=== PATIENT | female | born 1980 | race Caucasian/White ===

== ENCOUNTER 2019-06-30 10:14 | Emergency (ER) | payer MEDICAID ==
[~2019-06-30] VITALS: Ht 149.9 cm; Wt 81.8 kg
[~2019-06-30 10:14] MED LIST: PREDNISONE20 MG PO
[2019-06-30 10:27] VITALS: TEMP 98.3
[2019-06-30] MEDS ORDERED: ZOFRAN ODT8 MG PO (10:49)
[2019-06-30] MEDS ORDERED: PRIL40 PO (10:51)
[2019-06-30 11:07] LABS: BASO % 0.1 % (0.0-2.0); EOS # 0.1 (0.0-0.7); EOS % 1.5 % (0-4.0); GRAN # 7.1 (1.4-6.5); GRAN % 80.8 % (42.2-75.2); HEMATOCRIT 41.1 % (37.0-47.0); HEMOGLOBIN 13.5 g/dl (12.5-16.0); LYMPH # 1.1 (1.2-3.4); LYMPH % 12.4 % (20.0-51.0); MEAN CELL VOLUME 90 fl (80.0-100.0); MEAN CORPUSCULAR HEMOGLOBIN 30 pg (27.0-31.0); MEAN CORPUSCULAR HGB CONC 33 g/dl (33.0-37.0); MEAN PLATELET VOLUME 10.5 fl (7.4-10.4); MONO # 0.4 (0.1-0.6); MONO % 4.9 % (1.7-9.3); PLATELET COUNT 227 K/mm3 (130-400); RED BLOOD COUNT 4.56 M/mm3 (4.10-5.30); REDCELL DISTRIBUTION WIDTH-CV 12.4 % (11.5-14.5)
[2019-06-30 11:20] LABS: ALANINE AMINOTRANSFERASE 19 U/L (9-52); ALBUMIN 4.3 gm/dL (3.5-5.0); ALKALINE PHOSPHATASE 57 U/L (50-136); ANION GAP 10 mmol/L (7-16); AST,SGOT 19 U/L (15-37); BILIRUBIN,TOTAL 0.9 mg/dL (0.0-1.0); BLOOD UREA NITROGEN 14 mg/dL (7-17); C-REACTIVE PROTEIN 0.6 mg/dL (0.0-0.9); CALCIUM 8.9 mg/dL (8.4-10.2); CARBON DIOXIDE 21 mmol/L (22-30); CHLORIDE 106 mmol/L (98-107); CREATININE, serum 0.56 (0.52-1.25); GLUCOSE 113 mg/dL (74-106); LIPASE 84 U/L (23-300); SODIUM 138 mmol/L (137-145); TOTAL PROTEIN 8.2 gm/dL (6.4-8.2)
[2019-06-30 11:38] LABS: TROPONIN-I < 0.012 ng/mL (0.000-0.035)
[2019-06-30] MEDS ORDERED: CARAFATE 1GM1 G PO (12:08)
[2019-06-30 12:26] VITALS: BP 132/86; PULSE 85
== END 2019-06-30 12:26 | disposition home or self-care (01) ==
LOC: COL.ER 10:14
PROVIDERS: Emergency Medicine
DX: R11.2 Nausea with vomiting, unspecified (principal); R19.7 Diarrhea, unspecified; R10.13 Epigastric pain; Z90.89 Acquired absence of other organs; Z90.710 Acquired absence of both cervix and uterus
CPT/HCPCS: C9113; J2270; J2405; J7030

== ENCOUNTER → 2021-03-29 | Outpatient (CLI) | payer MEDICAID ==
[~2021-03-29] MED LIST changes: +CARAFATE 1GM1 G PO; +PRIL40 PO; +ZOFRAN ODT8 MG PO
== END ==
LOC: MC.RAD 14:13
DX: Z12.31 Encounter for screening mammogram for malignant neoplasm of breast (principal); N63.11 Unspecified lump in the right breast, upper outer quadrant

== ENCOUNTER → 2021-04-08 | Outpatient (CLI) | payer MEDICAID | LOC: MC.RAD 09:55 | DX: R59.0 Localized enlarged lymph nodes (principal) ==

== ENCOUNTER 2021-12-26 15:35 | Emergency (ER) | payer MEDICAID ==
[~2021-12-26] VITALS: Ht 149.9 cm; Wt 92.7 kg
[2021-12-26 16:20] LABS: HEMOGLOBIN 11.7 g/dl (12.5-16.0); MEAN CELL VOLUME 87 fl (80.0-100.0); MEAN CORPUSCULAR HEMOGLOBIN 29 pg (27-31); MEAN CORPUSCULAR HGB CONC 33 g/dl (33.0-37.0); MEAN PLATELET VOLUME 10.1 fl (7.4-10.4); PLATELET COUNT 188 K/mm3 (130-400); REDCELL DISTRIBUTION WIDTH-CV 12.8 % (11.5-14.5)
[2021-12-26 16:21] LABS: COLLECTION METHOD CLEAN CATCH
[2021-12-26 16:23] LABS: HEMATOCRIT 35.6 % (37.0-47.0)
[2021-12-26 16:37] LABS: ALBUMIN 3.5 gm/dL (3.5-5.0); BILIRUBIN,TOTAL 0.7 mg/dL (0.2-1.2); C-REACTIVE PROTEIN 2.8 mg/dL (0.00-0.50); CALCIUM 8.8 mg/dL (8.4-10.2); CREATININE, serum 0.74 mg/dL (0.57-1.11); POTASSIUM 3.7 mmol/L (3.5-4.5); TOTAL PROTEIN 7.8 gm/dL (6.2-8.1)
[2021-12-26 17:08] LABS: BAND 8 % (0-10); NEUTROPHILS 25 % (42.0-75.2); PLATELET ESTIMATE NORMAL (NORMAL)
[2021-12-26 17:09] LABS: LYMPHOCYTE 52 % (20.0-51.0)
[2021-12-26 17:13] LABS: MUCOUS Present (NOT PRESENT); PH 5 (5-8); URINE APPEARANCE Cloudy (CLEAR/HAZY); URINE BILIRUBIN Negative (NEGATIVE); URINE BLOOD Negative (NEGATIVE); URINE COLOR Yellow (YELLOW); URINE GLUCOSE Negative (NEGATIVE); URINE KETONE 2+ (NEGATIVE); URINE LEUKOCYTE ESTERASE 3+ (NEGATIVE); URINE NITRATE Negative (NEGATIVE); URINE PROTEIN(semi-quant) Negative (NEGATIVE); URINE RBC 0-2 /hpf (0-2)
[2021-12-26 17:16] LABS: URINE BACTERIA Occasional /hpf (NONE SEEN)
[2021-12-26] MEDS ORDERED: OMNICEF 300MG300 MG PO ×3 (17:57→18:01)
[2021-12-26 18:02] VITALS: BP 134/94; PULSE 90; TEMP 99
== END 2021-12-26 18:11 | disposition home or self-care (01) ==
LOC: COL.ER 15:35
PROVIDERS: Nurse Practitioner Primary Care
DX: N39.0 Urinary tract infection, site not specified (principal); R59.0 Localized enlarged lymph nodes; K21.9 Gastro-esophageal reflux disease without esophagitis; Z90.49 Acquired absence of other specified parts of digestive tract; Z28.311 Partially vaccinated for COVID-19; Z79.899 Other long term (current) drug therapy
CPT/HCPCS: J0696; J1885; J2405; J7030; Q9967

== ENCOUNTER 2022-05-20 09:02 | Outpatient (RCR) | payer OTHER ==
[~2022-05-20 09:02] MED LIST changes: +OMNICEF 300MG300 MG PO
== END 2022-06-09 | disposition home or self-care (01) ==
LOC: WSOH
DX: M79.621 Pain in right upper arm (principal); J45.909 Unspecified asthma, uncomplicated; K21.9 Gastro-esophageal reflux disease without esophagitis; T78.1XXA Other adverse food reactions, not elsewhere classified, initial encounter; Y99.0 Civilian activity done for income or pay

== ENCOUNTER 2023-09-30 11:12 | Emergency (ER) | payer OTHER ==
[~2023-09-30] VITALS: Ht 149.9 cm; Wt 78.2 kg
[2023-09-30 11:47] VITALS: TEMP 98.6
[2023-09-30 13:08] LABS: BASO % 0.5 % (0.0-2.0); EOS # 0.1 K/mm3 (0.0-0.7); EOS % 1.6 % (0.0-4.0); GRAN # 4.6 K/mm3 (1.4-6.5); GRAN % 63.2 % (42.2-75.2); HEMATOCRIT 43.7 % (37.0-47.0); HEMOGLOBIN 13.8 g/dl (12.5-16.0); LYMPH # 2.1 K/mm3 (1.2-3.4); LYMPH % 28.6 % (20.0-51.0); MEAN CELL VOLUME 93 fl (80.0-100.0); MEAN CORPUSCULAR HEMOGLOBIN 29 pg (27-31); MEAN CORPUSCULAR HGB CONC 32 g/dl (33.0-37.0); MEAN PLATELET VOLUME 10.7 fl (7.4-10.4); MONO # 0.4 K/mm3 (0.1-0.6); PLATELET COUNT 244 K/mm3 (130-400); RED BLOOD COUNT 4.69 M/mm3 (4.10-5.30)
[2023-09-30 13:31] LABS: BILIRUBIN,TOTAL 0.6 mg/dL (0.2-1.2); CALCIUM 10.1 mg/dL (8.4-10.2); CREATININE, serum 0.77 mg/dL (0.57-1.11); POTASSIUM 3.7 mmol/L (3.5-4.5); TOTAL PROTEIN 8.6 gm/dL (6.2-8.1)
[2023-09-30 14:50] LABS: COLLECTION METHOD CLEAN CATCH
[2023-09-30 14:56] LABS: URINE APPEARANCE CLEAR (CLEAR/HAZY); URINE BLOOD NEGATIVE (NEGATIVE); URINE COLOR YELLOW (YELLOW); URINE GLUCOSE NEGATIVE (NEGATIVE); URINE KETONE 1+ (NEGATIVE); URINE NITRATE NEGATIVE (NEGATIVE); URINE PROTEIN(semi-quant) NEGATIVE (NEGATIVE); URINE UROBILINOGEN 0.2 E.U/dL (0.2-1.0)
[2023-09-30] MEDS ORDERED: CEPHALEXIN500 M1 PO (15:03)
[2023-09-30 15:07] VITALS: BP 122/80; PULSE 90
== END 2023-09-30 15:20 | disposition home or self-care (01) ==
LOC: COL.ER 11:12
PROVIDERS: Physician Assistant
DX: R55 Syncope and collapse (principal); N39.0 Urinary tract infection, site not specified; I10 Essential (primary) hypertension; Z79.899 Other long term (current) drug therapy